=== PATIENT | male | born 1960 | race Caucasian/White ===

== ENCOUNTER 2023-08-16 10:33 | Emergency (ER) | payer OTHER, SELFPAY ==
[2023-08-16 10:46] VITALS: BP 154/90
--- NOTE | 2023-08-16 12:31 | ED.GENMED ---
History of Present Illness
General
Chief Complaint: Musculo-Skeletal Complaint
Source: patient
Exam Limitations: none
Time Seen by Provider: 08/16/23 11:06
Nursing documentation reviewed up to this point in time: agreed with
Travel History
Have you had any contact with someone who has COVID-19?: No
Do you have any symptoms of coronavirus? Fever > 100 degrees, chills, cough, shortness of breath, sore throat, loss of taste or smell, muscle aches, or headache?: No
History of Present Illness
History of Present Illness:
63-year-old male presenting to the emergency department today after dropping a hot tub motor on his bilateral feet right-sided worse than the left yesterday ongoing discomfort since yesterday. No breaks in the skin no additional concerns no
numbness or weakness.
Past History
Past History
ED Past Medical History: None
ED Past Surgical History: None
Social History
Tobacco: Former smoker
Alcohol: Occasional
Drug: None
Personal: Single
Living: with family
Employment: Employed ([employer])
Family History
Family History: Other (No significant)
Review of Systems
Review of Systems
Allergies reviewed?: Yes
All Other Systems: ROS reviewed and negative except as documented in HPI and ROS
Phy Exam
Physical Exam
Physical Exam:
GENERAL: Alert , in no apparent distress
EYE: pupils equal and reactive
NECK: Supple, no significant adenopathy.
ENT: o/p clr, mmm.
CARDIAC: Regular rate and rhythm .
LUNGS: Clear breath sounds bilaterally, no acute respiratory distress, no wheezes/rales/rhonchi
ABDOMEN: Soft, without focal tenderness, no r/g, no cvat
NEUROLOGICAL: Alert and oriented, no focal neuro deficits
SKIN: Warm and dry, skin intact.
MUSCULOSKELETAL: Mild swelling tender palpation to the right sided forefoot and midfoot on the lateral aspect as well as discomfort to the medial aspect of the left foot at the midfoot region. Otherwise no tenderness about the ankle tib-fib. No
breaks in the skin., well perfused.
PSYCH: Normal and appropriate interaction.
Course
Orders/Labs/Results
Orders:
Orders
08/16/23 10:48
CR Foot - Left Min 3 Views Urgent
Comment:
Reason For Exam: dropped hot tub motor on right and left foot
Foot, Right 3 View [CR Foot - Right Min 3 Views] Urgent
Comment:
Reason For Exam: dropped hot tub motor on feet
08/16/23 12:02
Jeff Wrap Left-Treatment ONCE
Jeff Wrap Right-Treatment ONCE
Crutches-Treatment ONCE
Vital Signs
Initial and Last Documented VS:
Initial Vital Signs
Temp Pulse Resp BP Pulse Ox
98.0 F 86 16 154/90 98
08/16/23 10:46 08/16/23 10:46 08/16/23 10:46 08/16/23 10:46 08/16/23 10:46
Last Documented Vital Signs
Temp Pulse Resp BP Pulse Ox
98.0 F 86 16 154/90 98
08/16/23 10:46 08/16/23 10:46 08/16/23 10:46 08/16/23 10:46 08/16/23 10:46
MDM/Problems Addressed
MDM/Problems Addressed:
63-year-old male presenting to the emergency department with discomfort to his feet bilaterally after dropping a motor on his feet yesterday. Here he is tenderness to both feet to the top of the feet x-rays performed no signs of fracture. Patient
with likely soft tissue injury. Patient was given crutches to help with ambulation as well as his feet were wrapped with Jeff bandages. He was recommended to elevate and ice otherwise return precautions given.
*Critical Care Note
Total Time (30-74mins, 75-104mins- exclusive of procedures): Not Applicable
ED Attending Note
-
Portions of this chart may have been created with voice recognition software.� Occasional wrong word or��sound alike� substitutions may have occurred due to the inherent limitations of voice recognition software.
Discharge Plan
Departure
Patient Disposition: Home (Routine Discharge)
Date of Disposition: 08/16/23
Time of Disposition: 12:33
Patient with high blood pressure during this ER visit?: No
Condition: Good
Covid-19: Not Applicable
Discharge Problem:
Foot sprain
Instructions: Foot Sprain (DC)
Prescriptions:
No Action
ascorbic acid (vitamin C) [Vitamin C] 500 mg Tablet Extended Release
500 mg PO DAILY
zinc 50 mg Capsule
50 mg PO DAILY
cholecalciferol (vitamin D3) [Vitamin D3] 25 mcg (1,000 unit) Tablet
25 mcg PO DAILY
mecobalamin (vitamin B12) 1,000 mcg Tablet,Chewable
1,000 mcg PO DAILY
turmeric 400 mg Capsule
400 mg PO DAILY
Cortisolv 429-595-62-50 mg Capsule
1 cap PO DAILY
hydrocodone-acetaminophen 5-325 mg tablet
1 tab PO Q6H PRN (Reason: pain) Qty: 20 0RF
Referrals:
Nba Torres DPM [Specified Professional Personl] - Follow up in 10 days
UNKNOWN - PT DOES,NOT KNOW [Family Provider] -
Activity Restrictions/Additional Instructions:
You came to the emergency department today with concerns of a foot injury. Here your evaluation was reassuring. Please elevate and ice. Return to the emergency department any worsening, new or concerning symptoms.
Interventions
Interventions:
*ED COVID-19 Vaccine History Last Done: 08/16/23 10:46
Discharge Date and Time
Print Language: SAUDI ARABIAN
== END 2023-08-16 12:42 | disposition home or self-care (01) ==
LOC: EMR 10:33
PROVIDERS: EMERGENCY PHYSICIAN Emergency Medicine
DX: S93.601A Unspecified sprain of right foot, initial encounter (principal); S93.602A Unspecified sprain of left foot, initial encounter; W22.8XXA Striking against or struck by other objects, initial encounter; Z87.891 Personal history of nicotine dependence; Y99.0 Civilian activity done for income or pay
CPT/HCPCS: 99283; 73630

== ENCOUNTER → 2024-04-04 15:48 | Outpatient (REF) | payer OTHER, SELFPAY | LOC: RAD 15:48 | PROVIDERS: ATTENDING PHYSICIAN Physician Assistant | DX: Z87.01 Personal history of pneumonia (recurrent) (principal) | CPT/HCPCS: 71046 ==